=== PATIENT | female | born 1950 | race Caucasian/White ===

== ENCOUNTER 2018-04-26 05:58 | Inpatient (IN) | payer OTHER ==
[2018-04-21 14:27] VITALS: BMI 28.3
[2018-04-26] MEDS ORDERED: oxyCODONE HCL 10 MG SUSTAINED ACTING TABLET PO ONE (07:09)
[2018-04-26] MEDS ORDERED: LIDOCAINE 1%/EPI 1:100000 (20 ML MULTI DOSE VIAL) ONE (07:24)
[2018-04-26] MEDS ORDERED: THROMBIN (BOVINE) 5,000 UNIT VIAL TP ONE ×3 (07:24→10:40)
[2018-04-26] MEDS ORDERED: SUCCINYLCHOLINE CHLORIDE 200 MG/10 ML VIAL ONE (07:26)
[2018-04-26] MEDS ORDERED: ONDANSETRON 4 MG/2 ML VIAL ONE (07:26)
[2018-04-26] MEDS ORDERED: KETOROLAC TROMETHAMINE 30 MG/1 ML VIAL ONE (07:26)
[2018-04-26] MEDS ORDERED: DEXAMETHASONE SOD PHOSPHATE 4 MG/1 ML VIAL ONE (07:26)
[2018-04-26] MEDS ORDERED: BUPIVACAINE HCL/PF 0.5% (5MG/ML) 10 ML VIAL ONE (07:28)
[2018-04-26] MEDS ORDERED: MIDAZOLAM HCL 2 MG/2 ML SINGLE DOSE VIAL ONE (07:57)
[2018-04-26] MEDS ORDERED: BUPIVACAINE LIPOSOME/PF (EXPAREL) 266 MG/20 ML VIAL ONE (07:57)
[2018-04-26] MEDS ORDERED: BUPIVACAINE HCL/PF 2.5 MG/ML - 30 ML VIAL IJ ONE (07:57)
--- NOTE | 2018-04-26 08:26 | HP ---
History & Physical Update - History History: No Change - Physical Physical: No Change - Assessment Assessment: No Change - Plan Plan: No Change
[2018-04-26] MEDS ORDERED: oxyCODONE HCL 5 MG TABLET PO PRN ×3 (09:33→11:15)
[2018-04-26] MEDS ORDERED: ONDANSETRON 4 MG/2 ML VIAL IVPUSH PRN ×2 (09:33→11:15)
[2018-04-26] MEDS ORDERED: LACTATED RINGERS SOLUTION 1,000 ML IV SCH ×2 (09:45→11:15)
[2018-04-26] MEDS ORDERED: GELATIN SPONGE,ABSORBABLE 1 GM PACKET TP ONE (10:00)
[2018-04-26] MEDS ORDERED: GUM MASTIC/STORAX/MSAL/ALCOHOL 1 DRP DROPSBTL MC ONE (10:40)
[2018-04-26] MEDS ORDERED: ACETAMINOPHEN 1000 MG/100 ML VIAL (NON FORMULARY) IVPB ONE ×2 (11:22→11:30)
--- NOTE | 2018-04-26 11:27 | OP ---
Operative Note - Note: Operative Date: 04/26/18 Pre-Operative Diagnosis: lumbar stenosis L4-L5 Operation: posterior lumbar decompression, instrumentation, fusion with transforaminal interbody L4-5 fusion, cage placement, neuromonitoring, allograft Surgeon: Paco Trujillo Information Technology Coordinator: Giuseppe Ma Anesthesiologist/INDUSTRIAL EDITOR: Alissa Marinelli Anesthesia: Spinal Estimated Blood Loss (mls): 50 Fluid Volume Replaced (mls): 900 Operative Report Dictated: Yes
[2018-04-26] MEDS ORDERED: CEFAZOLIN 1 GM/D5W 1 GM/50 ML BAG IVPB SCH (11:30)
[2018-04-26 12:23] VITALS: TEMP 97.6
[2018-04-26] MEDS ORDERED: diazePAM 2 MG TABLET ONE (13:45)
[2018-04-26] MEDS ORDERED: diazePAM 2 MG TABLET PO SCH (14:00)
[2018-04-26] MEDS ORDERED: CEFAZOLIN 1 GM/D5W 1 GM/50 ML BAG ONE (15:00)
[2018-04-26 15:42] VITALS: BP 121/76; PULSE 68
[2018-04-26] MEDS ORDERED: ACETAMINOPHEN 325 MG TABLET (FP) PO SCH (18:00)
--- NOTE | 2018-04-26 20:46 | OP ---
DATE OF OPERATION: 04/26/2018 PREOPERATIVE DIAGNOSIS: L4-5 re-herniation. POSTOPERATIVE DIAGNOSIS: L4-5 re-herniation. PROCEDURE PERFORMED: 1. Transforaminal lumbar interbody fusion at L4-5. 2. Placement of instrumentation, L4-5. 3. Revision laminectomy. 4. Placement of prosthetic cage. SURGEON: Giuseppe Ma MD EVP GENERAL COUNSEL: JANELLE Aldridge ESTIMATED BLOOD LOSS: 50 mL INTRAVENOUS FLUIDS: Per Anesthesia. ANESTHESIA: Spinal/erector spinae block. COMPLICATIONS: None. DISPOSITION: Patient brought to the PACU in stable condition. INDICATION FOR SURGERY: The patient is a 67-year-old female who has been suffering from pain from her back down her right leg. X-rays and MRI were completed which noted that she had a re-herniation at L4-5. She had previously undergone a laminectomy at that level, but unfortunately, she began to have pain again. A new MRI was performed which noted she had L4-5 herniated disk. She had gone through an exhaustive course of treatment for this which included medications, physical therapy, as well as injections. Unfortunately, her pain continued to persist despite all this. At this point, risks, benefits, and alternatives were discussed, and the patient consented to surgery. DESCRIPTION OF PROCEDURE: Patient was brought to the operating room by the anesthesia staff. After appropriate patient identification was performed, spinal anesthesia was given, and an erector spinae block was given. The patient was brought in to the OR, and she was able to position herself prone onto the OR table with all areas of bony prominences well padded at this time. The C-arm was brought in. The L4 and L5 pedicles were marked off. Her back was prepped and draped in a sterile manner. At this point, timeout was completed and an incision made from the top of L4 down to the bottom of L5 bilaterally. Dissection was carried down to the fascia. Fascia was split at this time. Under C-arm guidance, trocars were advanced into both the L4 and L5 pedicles. Through the trocars, wires inserted. Over the wires, tap was performed. On the right-hand side, retractor blades were set up to expose the L4-5 facet joint. This was confirmed with x-ray. The facet joint was removed. The disk was entered. Using a series of pituitaries, Kerrisons, and curettes, a diskectomy was completed. The endplates were decorticated at this time. Bone graft was laid in. A size 10 cage filled with bone graft was placed in. Tulip pads were placed over the screws. A jovita was measured and placed in. Caps and compression were applied. On the left-hand side, a jovita was measured and placed in. Caps and compression were applied. AP and lateral x-rays confirmed the instrumentation to be in good position. All x-ray instrumentation was removed. The fascia was closed with a No. 1 Vicryl suture, subcutaneous tissues were closed with 2-0 Vicryl suture, and the skin was closed with 3-0 Monocryl suture. Dermabond was applied. Steri-Strips were applied. Sterile dressing was applied. Patient was placed supine on the OR bed and brought to the PACU in stable condition. Neuromonitoring was stable throughout the operative course. Hedy ZHONG/[id number]
[2018-04-26] MEDS ORDERED: GABAPENTIN 100 MG CAPSULE (FP) PO SCH (22:00)
[2018-04-26] MEDS ORDERED: CALCIUM (OYSTER SHELL) 500 MG TABLET (FP) PO SCH (22:00)
[2018-04-26] MEDS ORDERED: SERTRALINE HCL 50 MG TABLET (FP) PO SCH (22:00)
[2018-04-26] MEDS ORDERED: ATORVASTATIN CA 10 MG TABLET (FP) PO SCH (22:00)
--- NOTE | 2018-04-27 10:46 | SURG ---
Surgery Digital Content Specialist Note Digital Content Specialist: Alissa Marinelli PA-C Date of Service: 04/26/18 Diagnosis: lumbar spondylolithesis Procedure: posterior lumbar decompression, instrumentation, fusion with transforaminal interbody L4-5 fusion, cage placement, neuromonitoring, all I was present for the entirety of the operative procedure. For further detail, please refer to operative report. Visit type - Case Type Case Type: Scheduled - Emergency Emergency Visit: No - New patient This patient is new to me today: Yes Date on this admission: 04/26/18
== END 2018-04-26 15:43 | disposition home or self-care (01) | DRG 460 ==
LOC: FM/S 05:58
PROVIDERS: ADMIT Orthopaedic Surgery Orthopaedic Surgery of the Spine; ATTEND Orthopaedic Surgery Orthopaedic Surgery of the Spine
PROC: 0ST20ZZ Resection of Lumbar Vertebral Disc, Open Approach (ICD-10-PCS; 2018-04-26)
PROC: 4A1004G Monitoring of Central Nervous Electrical Activity, Intraoperative, Open Approach (ICD-10-PCS; 2018-04-26)
PROC: 0SG00AJ Fusion of Lumbar Vertebral Joint with Interbody Fusion Device, Posterior Approach, Anterior Column, Open Approach (ICD-10-PCS; principal; 2018-04-26 09:19)
DX: M51.26 Other intervertebral disc displacement, lumbar region (principal); M48.061 Spinal stenosis, lumbar region without neurogenic claudication
CPT/HCPCS: 72100-TC-FY; 94760; J0131